=== PATIENT | female | born 2000 | race Hispanic/Latino ===

== ENCOUNTER 2018-12-29 03:22 | Inpatient (IN) | payer OTHER ==
[2018-12-29 04:00] VITALS: BMI 30.6
[2018-12-29 04:33] LABS: Amnisure Test No Membranes Rupture (No Rupture)
[2018-12-29 04:35] LABS: Amnisure Internal Control QC ACCEPTABLE (ACCEPTABLE)
[2018-12-29] MEDS ORDERED: hydrALAZINE 20 MG/ML VIAL SLOW IVP PRN ×2 (05:05→06:53)
[2018-12-29] MEDS ORDERED: Promethazine HCl 25 MG/ML VIAL IM PRN ×2 (06:53→08:54)
[2018-12-29] MEDS ORDERED: Ibuprofen 800 MG TAB PO PRN (06:53)
[2018-12-29] MEDS ORDERED: Ondansetron PF 4 MG/2 ML Vial IVP PRN ×2 (06:53→08:54)
[2018-12-29] MEDS ORDERED: Lidocaine 1% (PF) 30 ML VIAL SC PRN (06:53)
[2018-12-29] MEDS ORDERED: Butorphanol Tartrate 1 MG/ML VIAL SLOW IVP PRN (06:53)
[2018-12-29] MEDS ORDERED: Penicillin G Potassium 5 MILL.UNITS in Sodium Chloride 0.9% 100 ML IVPB SCH (07:00)
[2018-12-29] MEDS ORDERED: NS w/ Oxytocin 10 units 500 ML IV SCH (07:00)
--- NOTE | 2018-12-29 07:07 | PDOC.LDHP ---
Labor and Delivery H&P Chief complaint: loss of fluid Allergies/Adverse Reactions: Allergies Allergy/AdvReac Type Severity Reaction Status Date / Time No Known Allergies Allergy Verified 12/29/18 03:55
[2018-12-29 07:32] LABS: Hemoglobin 10.8 g/dL (12.0-16.0); Mean Corpuscular HGB CONC 34.3 g/dL (32.0-36.0); Mean Corpuscular Hemoglobin 29.4 pg (25.0-35.0); Mean Corpuscular Volume 85.9 fL (78.0-98.0); Mean Platelet Volume 8.1 fL (7.4-10.4); Platelet Count 222 thou/uL (130-400); RBC Distribution Width 12.2 % (11.5-14.5); Red Blood Cell (RBC) Count 3.66 mill/uL (4.00-5.20); White Blood Cell (WBC) Count 10.2 thou/uL (4.8-10.8)
[2018-12-29] MEDS ORDERED: Fentanyl 4 mcg/Bup 0.1% Cadd 100 ML ONE (08:12)
[2018-12-29 08:13] LABS: Hep B Surf Ag Non-Reactive S/CO (NonReactive)
[2018-12-29] MEDS ORDERED: NS / Oxytocin 40 units/1000ml 1,000 ML ONE ×2 (08:23→12:42)
[2018-12-29] MEDS ORDERED: Lidocaine 1% (PF) 30 ML VIAL ONE (08:23)
[2018-12-29] MEDS ORDERED: ePHEDrine/0.9% NaCl/PF SYRINGE 50 mg/10 ml SLOW IVP PRN (08:54)
[2018-12-29] MEDS ORDERED: diphenhydrAMINE 50 MG/ML VIAL IVP PRN (08:54)
[2018-12-29] MEDS ORDERED: Naloxone HCl 0.4 mg/ml Vial IVP PRN ×2 (08:54)
[2018-12-29] MEDS ORDERED: Acetaminophen 325 MG TAB PO PRN (08:54)
[2018-12-29] MEDS ORDERED: Lactated Ringer's 500 ML IV PRN (08:54)
[2018-12-29] MEDS ORDERED: Fentanyl 4 mcg/Bupivacaine 0.1% Cassette 100 ML EPIDURAL SCH (09:00)
[2018-12-29] MEDS ORDERED: Communication Order-Pharmacy FS SCH (09:00)
--- NOTE | 2018-12-29 09:06 | PDOC.LDPN ---
Labor & Delivery Progress Note - Subjective Subjective: comfortable - Objective Vital signs reviewed and normal: yes General: NAD Uterine fundus: non tender SVE: @ 0759 by nurse Savage Dilation: 6 Effacement: 90% Station: -1 FHT: category 1, variability present [place] contractions every: 1-4 min - Assessment (1) Term Code(s): Z34.90 - ENCNTR FOR SUPRVSN OF NORMAL , UNSP, UNSP TRIMESTER Current Visit: Yes Status: Acute Comment: Patient in active labor Now with SROM around 11pm last night -epidural in place -Continue cervical checks (2) Positive GBS test Code(s): B95.1 - STREPTOCOCCUS, GROUP B, CAUSING DISEASES CLASSD ELSWHR Current Visit: Yes Status: Acute Comment: s/p 1 dose penicillin -Will continue q4h Plan: continue plan of care
[2018-12-29] MEDS: Dextrose 5%-Lactated Ringers 1,000 ML IV SCH ×2 (09:39→15:17)
[2018-12-29 10:13] LABS: Syphilis Antibody Nonreactive (Nonreactive); Syphilis Antibody Index 0.04 S/CO (<1.00 Non-Reactive)
[2018-12-29] MEDS: Penicillin G 2.5 MILL.units 2.5 MILL.UNITS in Premix Bag 1 BAG IVPB SCH ×2 (11:03→15:17)
[2018-12-29] MEDS ORDERED: Methylergonovine 0.2 MG/ML VIAL IM PRN (11:43)
[2018-12-29] MEDS ORDERED: Preparation H Ointment 28 GM TUBE PR PRN (11:43)
[2018-12-29] MEDS ORDERED: Milk Of Magnesia 30 ML UDCUP PO PRN (11:43)
[2018-12-29] MEDS ORDERED: Bisacodyl 10 MG SUPP PR PRN (11:43)
[2018-12-29] MEDS ORDERED: Lanolin Ointment 7 GM TUBE TOP PRN (11:43)
[2018-12-29] MEDS ORDERED: Misoprostol 200 MCG TAB VAG PRN (11:43)
[2018-12-29] MEDS ORDERED: Methylergonovine 0.2 MG TAB PO PRN (11:43)
[2018-12-29] MEDS ORDERED: diphenhydrAMINE 25 MG CAP PO PRN (11:43)
[2018-12-29] MEDS: NS / Oxytocin 40 units/1000ml 1,000 ML IV PRN ×2 (12:12→12:43)
--- NOTE | 2018-12-29 14:30 | PDOC.OPDEL ---
OB Operative/Delivery Note Delivery Dr/Surgeon: Perla Moore Dawson, [place] Pre-Delivery Diagnosis: ruptured membrane Procedure/Post Delivery Dx: spontaneous vaginal delivery Weeks gestation: 39 Anesthesia: epidural - Additional Findings/Plan Placenta delivered: spontaneous Repaired Obstetrical Laceration: none Estimated blood loss: 337 Compilations/Other Findings: This is a 18year old female @ 39.0 wks who delivered a viable F at 1137 on 12/29/18. Following an uneventful antepartum course, a vigorous F was delivered over an intact perineum in the occipitoanterior position. Anterior Shoulder and then remainder of the body delivered. No nuchal cord. The head was held down and mouth and nares were bulb suctioned. After delayed cord clamping, it was cut and cord blood collected. Placenta was delivered intact in the [place] presentation with a 3 vessel cord noted. Fundal massage was performed and the fundus was firm. The cervix and vagina were inspected and found to be free of lacerations. went to nursery in good condition for routine care. Apgars were 9/9 at 1 & 5 minutes, respectively. Patient tolerated delivery well and went to after routine recovery/ care. Post delivery plan: routine recovery
[2018-12-29] MEDS ORDERED: Bupivacaine/Epinephrine 0.25% 30 ML VIAL ONE (15:00)
[2018-12-29] MEDS: Ibuprofen 800 MG TAB PO PRN (15:18)
[2018-12-30] MEDS: Ibuprofen 800 MG TAB PO PRN ×3 (00:54→16:18)
[2018-12-30] MEDS: Dextrose 5%-Lactated Ringers 1,000 ML IV SCH ×3 (01:32→14:20)
[2018-12-30] MEDS: Penicillin G 2.5 MILL.units 2.5 MILL.UNITS in Premix Bag 1 BAG IVPB SCH ×5 (01:32→14:21)
[2018-12-30 05:23] LABS: Hemoglobin 9.3 g/dL (12.0-16.0); Mean Corpuscular HGB CONC 33.5 g/dL (32.0-36.0); Mean Corpuscular Hemoglobin 29.2 pg (25.0-35.0); Mean Corpuscular Volume 87.1 fL (78.0-98.0); Mean Platelet Volume 7.9 fL (7.4-10.4); Platelet Count 176 thou/uL (130-400); RBC Distribution Width 12.2 % (11.5-14.5); Red Blood Cell (RBC) Count 3.19 mill/uL (4.00-5.20); White Blood Cell (WBC) Count 8.8 thou/uL (4.8-10.8)
--- NOTE | 2018-12-30 06:50 | PDOC.PP ---
Post Progress Note Post Day #: 1 Subjective: Pt resting in bed. Pt reports doing well. Denies any fever, chills, sob, chest pain. Pt reports lochia the same as period. Reports getting up and walking around fine. Pt is breast and bottle feeding. No other acute concerns at this time. PO intake tolerated: yes Flatus: yes Ambulation: yes Vital Signs (12 hours) Temp Pulse Resp BP Pulse Ox 12/30/18 04:45 98.0 F 72 18 110/64 12/30/18 00:54 98.5 F 80 18 106/55 L 12/29/18 20:20 98.6 F 72 20 105/58 L 99 Weight Weight 78.471 kg - Physical Examination General: NAD Cardiovascular: no m/r/g, RRR Respiratory: clear to auscultation bilaterally, non-labored breathing Abdominal: + bowel sounds, lochia (Reports like normal period), no distention, appropriately TTP Fundus firm & at: umbilicus Extremities: negative homans (B) Neurological: no gross focal deficits Psychiatric: A&Ox3, normal affect Result Diagrams: 12/30/18 05:11 Additional Labs: Post Labs Blood Type A POSITIVE 12/29/18 07:18 Hep Bs Antigen Non-Reactive S/CO (NonReactive) 12/29/18 07:18 (1) Positive GBS test Code(s): B95.1 - STREPTOCOCCUS, GROUP B, CAUSING DISEASES CLASSD ELSWHR Status : Acute Comment: s/p 1 dose penicillin -Will continue q4h (2) Delivery normal Code(s): O80 - ENCOUNTER FOR FULL-TERM UNCOMPLICATED DELIVERY; Z37.9 - OUTCOME OF DELIVERY, UNSPECIFIED Status: Acute Comment: 16 yo now delivered a TAGA F via @ 0128 on 01/21/17. -Labor without complications -Delivery without complications -Hgb went from 11.1-->10.1 -Pt reports red lochia. Less bleeding today. -Denies any pain. No other concerns at this time. -Discharge today - Assessment/Plan 18 yo @ 39.0 weeks delivered TAGA F infant via on 12/29 @ 11:27. EBL 200 Post Day 1 -Routine post care -Hgb dropped to 9.4. Will px ferrous sulfate - consulted for breast feeding. -No acute concerns. Possible home today. May need to monitor baby for 48 hours. GBS+ -Tx with penicillin x1 before delivery
[2018-12-30] MEDS: Ferrous Sulfate 325 MG TAB PO SCH ×2 (08:17→16:18)
[2018-12-30] MEDS: Prenatal Vitamin 1 TAB PO SCH (08:17)
[2018-12-30] MEDS ORDERED: Adacel (T-DAP) 0.5 ML SYRINGE IM ONE (11:43)
[2018-12-31] MEDS: Ibuprofen 800 MG TAB PO PRN (00:15)
[2018-12-31] MEDS: Dextrose 5%-Lactated Ringers 1,000 ML IV SCH ×2 (00:46→08:06)
--- NOTE | 2018-12-31 07:21 | PDOC.PP ---
Post Progress Note Post Day #: 2 Subjective: Pt doing well. Tolerating PO. Denies any n/v/d/c. Reports up and walking around. Reports having light lochia. Denies any fever, chills, SOB or chest pain. Denies any swelling. PO intake tolerated: yes Flatus: yes Ambulation: yes Vital Signs (12 hours) Temp Pulse Resp BP 12/30/18 19:55 98.5 F 71 18 110/52 L Weight Weight 78.471 kg - Physical Examination General: NAD Cardiovascular: no m/r/g, RRR Respiratory: clear to auscultation bilaterally, non-labored breathing Abdominal: + bowel sounds, lochia (reports as light), no distention, appropriately TTP Fundus firm & at: below umbilicus Extremities: negative homans (B) Neurological: no gross focal deficits Psychiatric: A&Ox3, normal affect Result Diagrams: 12/30/18 05:11 Additional Labs: Post Labs Blood Type A POSITIVE 12/29/18 07:18 Hep Bs Antigen Non-Reactive S/CO (NonReactive) 12/29/18 07:18 (1) Positive GBS test Code(s): B95.1 - STREPTOCOCCUS, GROUP B, CAUSING DISEASES CLASSD ELSWHR Status : Acute Comment: s/p 1 dose penicillin -Will continue q4h (2) Delivery normal Code(s): O80 - ENCOUNTER FOR FULL-TERM UNCOMPLICATED DELIVERY; Z37.9 - OUTCOME OF DELIVERY, UNSPECIFIED Status: Acute Comment: 16 yo now delivered a TAGA F via @ 0128 on 01/21/17. -Labor without complications -Delivery without complications -Hgb went from 11.1-->10.1 -Pt reports red lochia. Less bleeding today. -Denies any pain. No other concerns at this time. -Discharge today - Assessment/Plan 18 yo @ 39.0 weeks delivered TAGA F via on 12/29 @ 11:27. EBL 200 Post Day 2 -Routine post care -Hgb dropped to 9.4. Will px ferrous sulfate - consulted for breast feeding. -No acute concerns. Pt doing well. Baby will be observed for 48 hours due to inadequate GBS ppx but then will be stable for d/c. GBS+ -Tx with penicillin x1 before delivery Addendum - Attending - Attending Attestation Date/Time: 01/01/19 3008 I personally evaluated the patient and discussed the management with Dr. Duncan. I agree with the History, Examination, Assessment and Plan documented above with any addition or exceptions noted below.
[2018-12-31 07:58] VITALS: TEMP 98.1
[2018-12-31] MEDS: Prenatal Vitamin 1 TAB PO SCH (08:41)
[2018-12-31] MEDS: Ferrous Sulfate 325 MG TAB PO SCH (08:42)
[2018-12-31 11:50] VITALS: BP 127/70
== END 2018-12-31 12:45 | disposition home or self-care (01) | DRG 807 ==
LOC: L&D/OP 03:22 → L&D 10:28 → 3SW 14:24
PROVIDERS: ADMIT Obstetrics & Gynecology; ATTEND Obstetrics & Gynecology
PROC: 10E0XZZ Delivery of Products of Conception, External Approach (ICD-10-PCS; principal; 2018-12-29)
DX: O42.02 Full-term premature rupture of membranes, onset of labor within 24 hours of rupture (principal); Z37.0 Single live birth; O99.824 Streptococcus B carrier state complicating childbirth; Z3A.39 39 weeks gestation of pregnancy
CPT/HCPCS: 36415; 51702; 84112; 85027; 86780; 86850; 86900; 86901; 87340; 99285; J2001; J2540; J3490

== ENCOUNTER 2019-01-04 13:14 | Emergency (ER) | payer OTHER ==
[2019-01-04 14:00] LABS: #Basophils 0.1 thou/uL (0.0-0.2); #Eosinphils 0.1 thou/uL (0.0-0.7); #Lymphocytes 1.6 thou/uL (1.20-3.40); #Monocytes 0.3 thou/uL (0.11-0.59); #Neutrophils 6.7 thou/uL (1.40-6.50); %Basophils 0.7 % (0.0-1.0); %Eosinophils 1.4 % (0.0-10.0); %Lymphocytes 17.8 % (28.0-48.0); %Monocytes 3.8 % (0.0-4.0); %Neutrophils 76.3 % (31.0-61.0); Hemoglobin 10.8 g/dL (12.0-16.0); Mean Corpuscular HGB CONC 33.3 g/dL (32.0-36.0); Mean Corpuscular Hemoglobin 28.7 pg (25.0-35.0); Mean Corpuscular Volume 86.3 fL (78.0-98.0); Mean Platelet Volume 7.5 fL (7.4-10.4); Platelet Count 216 thou/uL (130-400); RBC Distribution Width 12.6 % (11.5-14.5); Red Blood Cell (RBC) Count 3.74 mill/uL (4.00-5.20); White Blood Cell (WBC) Count 8.7 thou/uL (4.8-10.8)
[2019-01-04 14:22] LABS: ALT (SGPT) 20 U/L (8-55); AST (SGOT) 20 U/L (5-34); Albumin 3.5 g/dL (3.5-5.0); Alkaline Phosphatase 113 U/L (40-150); Anion Gap 13 mmol/L (10-20); BUN (Urea Nitrogen) 13 mg/dL (7.0-18.7); Bilirubin, Total 0.2 mg/dL (0.2-1.2); Calc. Creatinine Clearance 0 mL/min (70-130); Carbon Dioxide 21 mmol/L (22-29); Chloride 110 mmol/L (98-107); Estimated GFR-MDRD Greater than 90; Globulin 3.3 g/dL (2.4-3.5); Glucose 82 mg/dL (70-105); Potassium 3.7 mmol/L (3.5-5.1); Protein, Total 6.8 g/dL (6.0-8.3); Sodium 140 mmol/L (136-145)
--- NOTE | 2019-01-04 14:46 | ULT ---
EXAM: Pelvic ultrasound HISTORY: Status post delivery on 12/29/2018 with foul vaginal discharge COMPARISON: None TECHNIQUE: Multiple grayscale and color Doppler images were obtained in a transabdominal pelvic ultra sound. Spectral analysis of the Doppler waveforms of the ovaries were performed. FINDINGS: CERVIX: No evidence of nabothian cysts. UTERUS: Enlarged in size as expected without focal abnormality. ENDOMETRIAL STRIPE: 12 mm. No free fluid is seen in the pelvis. RIGHT OVARY: Normal flow without focal mass. LEFT OVARY: Normal flow without focal mass. IMPRESSION: No significant pelvic abnormality
[2019-01-04 15:47] LABS: Bacteria/HPF None Seen HPF (None Seen); Bilirubin Negative (Negative); Blood, Urine 2+ (Negative); Clarity Clear (Clear); Glucose, Urine (Dipstick) Normal (Negative); Leukocyte Negative Leu/uL (Negative); Mucous/LPF 1+ LPF (<2+); Nitrite Negative (Negative); Protein, Urine (Dipstick) Negative (Neg-Trace); Squamous Epithelial 0-3 HPF (0-3); Urobilinogen Normal mg/dL (Less than 2); WBC/HPF 0-3 HPF (0-3)
== END 2019-01-04 16:17 | disposition home or self-care (01) ==
LOC: ERS 13:14
DX: O99.89 Other specified diseases and conditions complicating pregnancy, childbirth and the puerperium (principal); R10.2 Pelvic and perineal pain
CPT/HCPCS: 36415; 76856; 80053; 81003; 81015; 83605; 85025; 93976

== ENCOUNTER 2021-02-22 11:24 | Emergency (ER) | payer OTHER ==
[2021-02-22] MEDS ORDERED: Ketorolac Tromethamine 30 MG/ML VIAL ONE (12:41)
[2021-02-22] MEDS ORDERED: Ondansetron PF 4 MG/2 ML Vial ONE (12:41)
[2021-02-22 21:19] LABS: SARS-CoV-2 PCR by NAA DETECTED (NotDetected)
== END 2021-02-22 14:11 | disposition short-term general hospital (02) ==
LOC: ERS 11:24
DX: U07.1 COVID-19 (principal)
CPT/HCPCS: 93005; 96374; 96375; J1885; J2405; U0003; U0005